=== PATIENT | female | born 1980 | race Two or more races ===

== ENCOUNTER 2017-07-25 17:52 | Emergency (ER) | payer MEDICAID, OTHER ==
[~2017-07-25] VITALS: Ht 157.5 cm; Wt 74.8 kg
[2017-07-25] MEDS ORDERED: IBUPROFEN 800 MG TAB PO ONE (21:15)
[2017-07-25 21:19] VITALS: BP 132/73
== END 2017-07-25 21:39 | disposition home or self-care (01) ==
LOC: ER 18:03
DX: S13.4XXA Sprain of ligaments of cervical spine, initial encounter (principal); M54.9 Dorsalgia, unspecified; Z98.51 Tubal ligation status; V43.52XA Car driver injured in collision with other type car in traffic accident, initial encounter; Y93.89 Activity, other specified; Y92.89 Other specified places as the place of occurrence of the external cause; Y99.8 Other external cause status